=== PATIENT | female | born 1950 | race Caucasian/White ===

== ENCOUNTER → 2017-01-08 | Outpatient (CLI) | payer MEDICARE ==
[~2017-01-08] MED LIST: ASPI81TA3; BLOOD PRESSURE; CHOLESTEROL; HYDR25TA6 OR; LISI10TA4 OR; LOPR50TA OR; PLAV75TA2 OR; PRAV40TA; PROZ20CA; SERT50TA2 OR; ZANT150T OR; lisinopril/HCTZ
--- NOTE | 2017-01-08 11:34 | REP ---
Duplex carotid sonography: History: TIA in 2011. Bilateral carotid stenosis. Comparison sonography December 22, 2015. This showed less than 50% narrowing in the right ICA and 60-79% narrowing in the left ICA. Sonographic findings: Antegrade flow is observed in both vertebral arteries. Right carotid: The right common carotid artery shows mild soft plaquing. There is mild soft plaquing in the bulb and proximal ICA on two-dimensional scanning. Color flow and spectral Doppler interrogation remain unremarkable on the right. Velocity chart right carotid : PSV EDV Right CCA 66.0 cm/s Right ICA 71.0 27.0 Right ECA 67.0 Right ICA/CCA ratio normal 1.0. Impression: 16-49% category narrowing in the right ICA by Doppler velocity criteria. Doppler velocities have not increased on the right since the prior study. Left carotid: The left common carotid artery is unremarkable on two-dimensional scanning. There is moderate mixed plaquing in the bulb, proximal ICA and proximal ECA. Color flow and spectral Doppler interrogation show some stenotic flow velocity of the ECA, but normal velocities in the ICA. Velocity chart left carotid: PSV EDV Left CCA 57.0 cm/s Left ICA 85.0 31.0 Left ECA 154.0 Left ICA/CCA ratio normal 1.4. Impression: 50-79% category narrowing in the left ICA by Doppler velocity criteria. Doppler velocities are less than those recorded on the prior study in December of 2015. Signed by Fernando Ernst MD 01/08/2017 01:19 P
== END ==
LOC: M RAD 09:37
PROVIDERS: ATTEND Surgery Vascular Surgery
DX: I65.23 Occlusion and stenosis of bilateral carotid arteries (principal)

== ENCOUNTER → 2017-04-09 | Outpatient (CLI) | payer MEDICARE | LOC: M WHC 14:25 | DX: Z12.31 Encounter for screening mammogram for malignant neoplasm of breast (principal); R92.8 Other abnormal and inconclusive findings on diagnostic imaging of breast | CPT/HCPCS: 77067 ==

== ENCOUNTER → 2017-04-12 | Outpatient (CLI) | payer MEDICARE | LOC: M RAD 15:01 | DX: R92.2 Inconclusive mammogram (principal); R92.0 Mammographic microcalcification found on diagnostic imaging of breast | CPT/HCPCS: 77065 ==

== ENCOUNTER → 2017-06-25 | Outpatient (CLI) | payer MEDICARE | LOC: M WHC 15:20 | DX: Z51.81 Encounter for therapeutic drug level monitoring (principal); Z79.899 Other long term (current) drug therapy; C50.919 Malignant neoplasm of unspecified site of unspecified female breast | CPT/HCPCS: 77080 ==

== ENCOUNTER 2017-07-12 08:53 | Outpatient (RCR) | payer MEDICARE | END 2017-07-30 | LOC: M ONCR 08:53 | DX: C50.812 Malignant neoplasm of overlapping sites of left female breast (principal) | CPT/HCPCS: 77300 ==

== ENCOUNTER 2017-07-31 10:14 | Outpatient (RCR) | payer MEDICARE | END 2017-08-30 | LOC: M ONCR 10:14 | DX: C50.812 Malignant neoplasm of overlapping sites of left female breast (principal) | CPT/HCPCS: 77336 ==

== ENCOUNTER → 2017-09-21 | Outpatient (CLI) | payer MEDICARE | LOC: M ONCR 10:08 | DX: C50.812 Malignant neoplasm of overlapping sites of left female breast (principal) ==

== ENCOUNTER → 2018-01-08 | Outpatient (CLI) | payer MEDICARE | LOC: M RAD 14:00 | DX: I65.23 Occlusion and stenosis of bilateral carotid arteries (principal) | CPT/HCPCS: 93880 ==

== ENCOUNTER 2018-01-31 07:36 | Day surgery (SDC) | payer MEDICARE ==
[2018-01-31] MEDS: NS 1,000 ML IV (06:30)
[~2018-01-31 07:36] MED LIST changes: -ASPI81TA3; -BLOOD PRESSURE; -CHOLESTEROL; -HYDR25TA6 OR; +LIDOCAINE 2% MDV 20 ML VIAL As Ordered; -LISI10TA4 OR; -LOPR50TA OR; -PLAV75TA2 OR; -PRAV40TA; +PROPOFOL 200 MG/20 ML VIAL As Ordered; -PROZ20CA; -SERT50TA2 OR; -ZANT150T OR; -lisinopril/HCTZ
== END 2018-01-31 09:45 | disposition home or self-care (01) ==
LOC: M OPP 07:36
DX: Z12.11 Encounter for screening for malignant neoplasm of colon (principal); K57.30 Diverticulosis of large intestine without perforation or abscess without bleeding; Z80.0 Family history of malignant neoplasm of digestive organs; I10 Essential (primary) hypertension; E78.00 Pure hypercholesterolemia, unspecified; K21.9 Gastro-esophageal reflux disease without esophagitis; F32.9 Major depressive disorder, single episode, unspecified; M12.9 Arthropathy, unspecified; G47.30 Sleep apnea, unspecified; I73.9 Peripheral vascular disease, unspecified; I25.119 Atherosclerotic heart disease of native coronary artery with unspecified angina pectoris; I25.2 Old myocardial infarction; Z79.82 Long term (current) use of aspirin; Z79.899 Other long term (current) drug therapy; Z91.048 Other nonmedicinal substance allergy status; Z87.891 Personal history of nicotine dependence; Z78.0 Asymptomatic menopausal state; Z85.820 Personal history of malignant melanoma of skin; Z98.61 Coronary angioplasty status; Z98.890 Other specified postprocedural states
CPT/HCPCS: G0105

== ENCOUNTER 2018-02-13 09:55 | Emergency (ER) | payer MEDICARE ==
[2018-02-13] MEDS: ONDANSETRON 4MG/2ML VIAL (J2405) IV (10:51)
[2018-02-13] MEDS: NS 1,000 ML IV (10:51)
[2018-02-13] MEDS: MORPHINE 4 MG/ML 1ML VIAL/SYRINGE (J2270) IV (10:52)
[2018-02-13 10:57] LABS: BASO % 0.6 % (0.0-1.0); EOS # 0.1 10^3/uL (0.0-0.50); EOS % 1.4 % (0.0-3.0); HEMATOCRIT 41.9 % (36.0-47.0); HEMOGLOBIN 14.1 g/dl (12.0-15.5); IMMATURE GRANULOCYTE % 0.4 % (0-3.0); LYMPH # 1.4 10^3/uL (1.5-4.5); MEAN CORPUSCULAR HEMOGLOBIN 29.2 pg (27.0-33.0); MEAN CORPUSCULAR HGB CONC 33.7 g/dl (32.0-36.5); MEAN CORPUSCULAR VOLUME 86.7 fl (80.0-96.0); MONO # 0.7 10^3/uL (0.0-0.8); MONO % 10.3 % (0.0-5.0); NEUTROPHILS # 4.9 10^3/uL (1.8-7.7); NEUTROPHILS % 68.3 % (36.0-66.0); PLATELET COUNT, AUTOMATED 227 10^3/uL (150-450); RED BLOOD COUNT 4.83 10^6/uL (4.00-5.40); RED CELL DISTRIBUTION WIDTH 12.4 % (11.5-14.5); WHITE BLOOD COUNT 7.2 10^3/uL (4.0-10.0)
[2018-02-13 11:18] LABS: LACTIC ACID SEPSIS PROTOCOL 0.8 MMOL/L (0.4-2.0)
[2018-02-13 11:21] LABS: ALBUMIN 3.6 GM/DL (3.2-5.2); ALBUMIN/GLOBULIN RATIO 1.09 (1.00-1.93); ALKALINE PHOSPHATASE 118 U/L (45-117); ALT/SGPT 25 U/L (12-78); AMYLASE 83 U/L (25-115); ANION GAP 6 MEQ/L (8-16); AST/SGOT 21 U/L (7-37); BILIRUBIN,DIRECT 0.2 MG/DL (0.0-0.2); BILIRUBIN,TOTAL 1.2 MG/DL (0.2-1.0); BLOOD UREA NITROGEN 15 MG/DL (7-18); CALCIUM LEVEL 8.7 MG/DL (8.8-10.2); CARBON DIOXIDE LEVEL 28 MEQ/L (21-32); CHLORIDE LEVEL 107 MEQ/L (98-107); CPK CREATINE PHOSPHOKINASE 101 U/L (26-192); CREATININE FOR GFR 0.84 MG/DL (0.55-1.30); GLOMERULAR FILTRATION RATE > 60.0 (>45); GLUCOSE, FASTING 105 MG/DL (70-100); LIPASE 168 U/L (73-393); MB/CK RELATIVE INDEX 1.29 (< OR =4); POTASSIUM SERUM 3.9 MEQ/L (3.5-5.1); SODIUM LEVEL 141 MEQ/L (136-145); TOTAL PROTEIN 6.9 GM/DL (6.4-8.2); TROPONIN I < 0.02 NG/ML (< 0.10)
[2018-02-13] MEDS ORDERED: ISOVUE-370 76% 100ML VIAL (Q9967) As Ordered (11:37)
== END 2018-02-13 20:21 | disposition home or self-care (01) ==
LOC: M ED 09:55
DX: K80.60 Calculus of gallbladder and bile duct with cholecystitis, unspecified, without obstruction (principal); I10 Essential (primary) hypertension; E78.00 Pure hypercholesterolemia, unspecified; G47.30 Sleep apnea, unspecified; K21.9 Gastro-esophageal reflux disease without esophagitis; F42.9 Obsessive-compulsive disorder, unspecified; F33.9 Major depressive disorder, recurrent, unspecified; Z87.19 Personal history of other diseases of the digestive system; Z85.3 Personal history of malignant neoplasm of breast; Z79.82 Long term (current) use of aspirin; Z79.899 Other long term (current) drug therapy; Z79.2 Long term (current) use of antibiotics; I25.2 Old myocardial infarction; Z95.5 Presence of coronary angioplasty implant and graft; Z98.890 Other specified postprocedural states; Z90.49 Acquired absence of other specified parts of digestive tract; Z80.0 Family history of malignant neoplasm of digestive organs; Z87.891 Personal history of nicotine dependence
CPT/HCPCS: J2270

== ENCOUNTER 2018-02-17 23:33 | Emergency (ER) | payer MEDICARE ==
[2018-02-18] MEDS: MORPHINE 4 MG/ML 1ML VIAL/SYRINGE (J2270) IV (00:30)
[2018-02-18] MEDS: NS 500 ML IV (00:30)
[2018-02-18] MEDS: ONDANSETRON 4MG/2ML VIAL (J2405) IV (00:35)
[2018-02-18 00:38] LABS: BASO # 0.1 10^3/uL (0.0-0.2); BASO % 1.1 % (0.0-1.0); EOS # 0.2 10^3/uL (0.0-0.50); EOS % 3.4 % (0.0-3.0); HEMATOCRIT 40.4 % (36.0-47.0); HEMOGLOBIN 13.7 g/dl (12.0-15.5); IMMATURE GRANULOCYTE % 0.4 % (0-3.0); LYMPH # 1.3 10^3/uL (1.5-4.5); LYMPH % 23.3 % (24.0-44.0); MEAN CORPUSCULAR HEMOGLOBIN 29.1 pg (27.0-33.0); MEAN CORPUSCULAR HGB CONC 33.9 g/dl (32.0-36.5); MONO # 0.9 10^3/uL (0.0-0.8); MONO % 15.3 % (0.0-5.0); NEUTROPHILS # 3.1 10^3/uL (1.8-7.7); NEUTROPHILS % 56.5 % (36.0-66.0); PLATELET COUNT, AUTOMATED 249 10^3/uL (150-450); RED CELL DISTRIBUTION WIDTH 12.4 % (11.5-14.5); WHITE BLOOD COUNT 5.5 10^3/uL (4.0-10.0)
[2018-02-18 00:49] LABS: ALBUMIN 3.5 GM/DL (3.2-5.2); ALBUMIN/GLOBULIN RATIO 1.03 (1.00-1.93); ALKALINE PHOSPHATASE 127 U/L (45-117); ALT/SGPT 26 U/L (12-78); ANION GAP 6 MEQ/L (8-16); AST/SGOT 25 U/L (7-37); BILIRUBIN,TOTAL 0.7 MG/DL (0.2-1.0); BLOOD UREA NITROGEN 12 MG/DL (7-18); C REACTIVE PROTEIN QUANTITATIV < 0.30 MG/DL (0.00-0.30); CALCIUM LEVEL 8.9 MG/DL (8.8-10.2); CARBON DIOXIDE LEVEL 27 MEQ/L (21-32); CHLORIDE LEVEL 109 MEQ/L (98-107); CREATININE FOR GFR 0.83 MG/DL (0.55-1.30); GAMMA GLUTAMYLTRANSPEPTIDASE 19 U/L (5-55); GLOMERULAR FILTRATION RATE > 60.0 (>45); GLUCOSE, FASTING 139 MG/DL (70-100); POTASSIUM SERUM 3.7 MEQ/L (3.5-5.1); SODIUM LEVEL 142 MEQ/L (136-145); TOTAL PROTEIN 6.9 GM/DL (6.4-8.2)
[2018-02-18 00:51] LABS: LACTIC ACID SEPSIS PROTOCOL 1.6 MMOL/L (0.4-2.0)
[2018-02-18 01:04] LABS: APPEARANCE, URINE CLEAR (CLEAR); BACTERIA, URINE AUTO NEGATIVE (NEGATIVE); BILIRUBIN, URINE AUTO NEGATIVE (NEGATIVE); BLOOD, URINE BLOOD 1+ (NEGATIVE); COLOR, URINE STRAW (YELLOW); GLUCOSE, URINE (UA) AUTO NEGATIVE (NEGATIVE); KETONE, URINE AUTO NEGATIVE (NEGATIVE); LEUKOCYTE ESTERASE, URINE AUTO NEGATIVE (NEGATIVE); NITRITE, URINE AUTO NEGATIVE (NEGATIVE); PROTEIN, URINE AUTO NEGATIVE (NEGATIVE); RBC, URINE AUTO 3 /HPF (0-3); SPECIFIC GRAVITY URINE AUTO 1.013 (1.002-1.035); SQUAMOUS EPITHELIAL CELL UR AU 0 /HPF (0-6); UROBILINOGEN, URINE AUTO 0.2 mg/dL (0.0-2.0); WBC, URINE AUTO 0 /HPF (0-3)
[2018-02-18] MEDS: HYDROMORPHONE HCL 0.5 MG/ 0.5 ML SYRINGE (J1170 PER 1) IV (02:44)
== END 2018-02-18 03:12 | disposition home or self-care (01) ==
LOC: M ED 23:33
DX: R10.10 Upper abdominal pain, unspecified (principal); R11.0 Nausea; I10 Essential (primary) hypertension; K21.9 Gastro-esophageal reflux disease without esophagitis; F33.9 Major depressive disorder, recurrent, unspecified; F42.9 Obsessive-compulsive disorder, unspecified; Z85.3 Personal history of malignant neoplasm of breast; Z79.899 Other long term (current) drug therapy; Z79.82 Long term (current) use of aspirin
CPT/HCPCS: J2270

== ENCOUNTER 2018-03-05 10:45 | Day surgery (SDC) | payer MEDICARE ==
[~2018-03-05 10:45] MED LIST changes: +KETOROLAC 60 MG/2 ML VIAL (J1885) As Ordered; +LIDOCAINE 2% INJ 100 MG/5 ML SDV (FOR ANES.) As Ordered; -LIDOCAINE 2% MDV 20 ML VIAL As Ordered; +MIDAZOLAM INJ 2 MG/2 ML VIAL (J2250) As Ordered; +ONDANSETRON 4MG/2ML VIAL (J2405) As Ordered; +ROCURONIUM BROMIDE 50 MG/5 ML VIAL As Ordered; +dexameTHASONE 4 MG/ML 1ML VIAL (J1100) As Ordered; +fentaNYL 250 MCG/5 ML INJECTION (J3010) As Ordered
[2018-03-05] MEDS ORDERED: ceFAZolin 1GM INJ (J0690 PER 500MG) As Ordered (10:52)
[2018-03-05] MEDS ORDERED: SEVOFLURANE INHAL SOLN 250 ML BTL As Ordered (11:01)
[2018-03-05] MEDS ORDERED: BUPIVACAINE/EPIN 0.5% 30 ML VIAL As Ordered (11:02)
[2018-03-05] MEDS: LR 1,000 ML IV (11:16)
[2018-03-05] MEDS: ceFAZolin SOD 1 GM in D5W MINI-BAG PLUS 50 ML IV (11:17)
[2018-03-05] MEDS ORDERED: ePHEDrine SULFATE 25 MG/5 ML(5MG/ML) SYRINGE As Ordered (12:13)
[2018-03-05] MEDS ORDERED: HYDROmorphone HCL 2 MG/ML 1ML VIAL (J1170) As Ordered (12:27)
[2018-03-05] MEDS ORDERED: GLYCOPYRROLATE INJ 0.2 MG/ML 2 ML VIAL As Ordered (12:27)
[2018-03-05] MEDS ORDERED: NEOSTIGMINE 10 MG/10 ML VIAL (J2710) As Ordered (12:27)
[2018-03-05] MEDS: CONRAY-60 60% 50ML VIAL (Q9961) As Ordered (12:35)
[2018-03-05] MEDS: GLUCAGON FOR INJ 1 MG VIAL (J1610) As Ordered (12:35)
[2018-03-05] MEDS: BUPIVACAINE/EPIN 0.25% 30 ML VIAL As Ordered (12:36)
[2018-03-05] MEDS ORDERED: NORCO, ANEXSIA 5/325MG TABLET (HYDROcodone/ACETAMINOPHEN) PO ×2 (13:15→13:30)
[2018-03-05] MEDS ORDERED: ONDANSETRON 4MG/2ML VIAL (J2405) IV ×2 (13:15→13:30)
[2018-03-05] MEDS ORDERED: fentaNYL 100 MCG/2 ML INJECTION (J3010) IV (13:15)
[2018-03-05] MEDS ORDERED: LR 1,000 ML IV ×2 (13:15)
[2018-03-05] MEDS ORDERED: MORPHINE 4 MG/ML 1ML VIAL/SYRINGE (J2270) IV (13:30)
== END 2018-03-05 15:33 | disposition home or self-care (01) ==
LOC: M SDC 10:45
DX: K80.18 Calculus of gallbladder with other cholecystitis without obstruction (principal); I10 Essential (primary) hypertension; E78.5 Hyperlipidemia, unspecified; K21.9 Gastro-esophageal reflux disease without esophagitis; Z92.3 Personal history of irradiation; G47.30 Sleep apnea, unspecified; Z79.82 Long term (current) use of aspirin; Z79.899 Other long term (current) drug therapy
CPT/HCPCS: 47562

== ENCOUNTER → 2018-06-03 | Outpatient (CLI) | payer MEDICARE ==
[~2018-06-03] MED LIST changes: +AMOX500C; +ASPI1TAB PO; +ASPI81TA3; +ATOR40TA75 PO; +BLOOD PRESSURE; +CARV6.25 PO; +CHOLESTEROL; +CIPR500T3 PO; +CITA-230 PO; +CLAR500T; +HYDR25TA6 OR; -KETOROLAC 60 MG/2 ML VIAL (J1885) As Ordered; +LETR2.5T2 PO; -LIDOCAINE 2% INJ 100 MG/5 ML SDV (FOR ANES.) As Ordered; +LISI10TA4 OR; +LISI2.5T5 PO; +LOPR50TA OR; -MIDAZOLAM INJ 2 MG/2 ML VIAL (J2250) As Ordered; -ONDANSETRON 4MG/2ML VIAL (J2405) As Ordered; +PLAV75TA2 OR; +PRAV40TA; +PRIL20TA2 PO; -PROPOFOL 200 MG/20 ML VIAL As Ordered; +PROZ20CA; +RANI150T PO; -ROCURONIUM BROMIDE 50 MG/5 ML VIAL As Ordered; +SERT50TA2 OR; +ZANT150T OR; -dexameTHASONE 4 MG/ML 1ML VIAL (J1100) As Ordered; -fentaNYL 250 MCG/5 ML INJECTION (J3010) As Ordered; +lisinopril/HCTZ
--- NOTE | 2018-06-03 17:02 | REP ---
Thoracic spine series: Three views: History: Muscle spasm. Comparison is made with CT images obtained as part of radiation therapy simulation dated July 12, 2017. The patient has history breast carcinoma. Findings: Thoracic vertebral body heights are preserved. Alignment is normal. There are degenerative disc changes at C4-5, C5-6 and C6-7 in the cervical spine on swimmer's lateral view. Pedicles and posterior elements are intact and the thoracic spine. There are clips in right upper quadrant of the abdomen. There are calcified mesenteric lymph node residuals in the mediastinum unchanged from the CT. There is also evidence of coronary artery stent material. Impression: No acute bony abnormality. Electronically Signed by Fernando Ernst MD 06/03/2018 05:03 P
--- NOTE | 2018-06-03 17:20 | REP ---
Lumbar spine series: Five views: History: Muscle spasm. Findings: There is straightening of the normal lumbar lordosis. Vascular calcification is seen in a normal caliber aorta. There are degenerative disc changes at the L4-5, L3-4 and in the T11-12 disc. There is partial wedge compression fracture deformity at the T12 vertebral body with approximate 15% loss of anterior vertebral body height. This is new from the imaging taken as prior CT scan dated February 13, 2018. No other compression fracture deformity is seen. Pedicles and posterior elements are intact in the lumbar spine. Psoas margins are symmetric. Sacrum and SI joints are intact. Impression: Mild wedge compression fracture deformity at the T12 vertebral body with 15% loss of anterior vertebral body heights. This is new when compared with February 13, [address] images[address] Degenerative disc changes are noted at L3-4 L4-5. Electronically Signed by Fernando Ernst MD 06/03/2018 05:25 P
== END ==
LOC: M RAD 15:50
PROVIDERS: ATTEND Family Medicine
DX: M62.830 Muscle spasm of back (principal); M54.5 Low back pain; M50.221 Other cervical disc displacement at C4-C5 level; M50.222 Other cervical disc displacement at C5-C6 level; M50.223 Other cervical disc displacement at C6-C7 level; M51.36 Other intervertebral disc degeneration, lumbar region

== ENCOUNTER → 2019-01-14 | Outpatient (CLI) | payer MEDICARE ==
[~2019-01-14] MED LIST changes: +ACET-683 PO; -ASPI1TAB PO; +ASPI81TA26 PO; -CITA-230 PO; +CITA20TA7 PO; +LISI-1046 PO; -LISI2.5T5 PO; +NIZA150C4 PO
--- NOTE | 2019-01-14 17:23 | REP ---
REASON FOR EXAM: Followup carotid arterial disease. COMPARISON: 01/08/2018 which showed a 50-69% stenosis of the left internal carotid artery and less than 50% stenosis of the right internal carotid artery. That was based on the NASCET consensus criteria. Today's examination again shows increased echoes throughout the carotid arteries and in a fashion essentially unchanged from the prior exam. No abnormal acoustic shadowing is identified that would be considered consistent with calcific deposition. RIGHT LEFT CCA systolic 83.8 cm/s 65.9 cm/s CCA diastolic 18.7 cm/s 22.8 cm/s ICA systolic 50.7 cm/s 87.5 cm/s ICA diastolic 18.3 cm/s 36.7 cm/s ICA/CCA ratio 0.61 1.3 Analysis of the spectral wave forms shows bilateral internal carotid arterial spectral broadening. There is antegrade flow seen in both vertebral arteries. IMPRESSION:According the NASCET consensus criteria, today's examination shows less than 50% stenosis of the internal carotid artery bilaterally. Electronically Signed by Hilario Silva DO 01/14/2019 06:03 P
== END ==
LOC: M RAD 15:04
PROVIDERS: ATTEND Surgery Vascular Surgery
DX: I65.23 Occlusion and stenosis of bilateral carotid arteries (principal)

== ENCOUNTER 2019-01-23 14:02 | Outpatient (RCR) | payer MEDICARE | END 2019-01-30 | LOC: M PT 14:02 | PROVIDERS: ATTEND Registered Nurse | DX: C50.312 Malignant neoplasm of lower-inner quadrant of left female breast (principal); Z17.0 Estrogen receptor positive status [ER+]; I89.0 Lymphedema, not elsewhere classified ==

== ENCOUNTER 2019-02-03 14:44 | Outpatient (RCR) | payer MEDICARE | END 2019-03-01 | LOC: M PT 14:44 | PROVIDERS: ATTEND Registered Nurse | DX: C50.312 Malignant neoplasm of lower-inner quadrant of left female breast (principal); I89.0 Lymphedema, not elsewhere classified; Z17.0 Estrogen receptor positive status [ER+] ==

== ENCOUNTER → 2019-09-02 | Outpatient (CLI) | payer MEDICARE ==
[~2019-09-02] MED LIST changes: -CLAR500T; +CLAR500T97; +FAMO20TA5 PO; -LISI-1046 PO; +LISI2.5T2 PO
[2019-09-02 17:09] LABS: BASO # 0.1 10^3/uL (0.0-0.2); EOS # 0.1 10^3/uL (0.0-0.5); EOS % 2.5 % (0.0-3.0); HEMATOCRIT 39.8 % (36.0-47.0); HEMOGLOBIN 13.3 g/dl (12.0-15.5); LYMPH # 1.4 10^3/uL (1.5-5.0); LYMPH % 29.6 % (24.0-44.0); MEAN CORPUSCULAR HEMOGLOBIN 29.8 pg (27.0-33.0); MEAN CORPUSCULAR HGB CONC 33.4 g/dl (32.0-36.5); MEAN CORPUSCULAR VOLUME 89.2 fl (80.0-96.0); MONO # 0.6 10^3/uL (0.0-0.8); MONO % 11.7 % (0.0-5.0); NEUTROPHILS # 2.6 10^3/uL (1.5-8.5); PLATELET COUNT, AUTOMATED 240 10^3/uL (150-450); RED BLOOD COUNT 4.46 10^6/uL (4.00-5.40); WHITE BLOOD COUNT 4.8 10^3/uL (4.0-10.0)
[2019-09-02 17:40] LABS: ALBUMIN 3.5 GM/DL (3.2-5.2); ALT/SGPT 31 U/L (12-78); BILIRUBIN,TOTAL 1.4 MG/DL (0.2-1.0); BLOOD UREA NITROGEN 15 MG/DL (7-18); CALCIUM LEVEL 8.8 MG/DL (8.8-10.2); CARBON DIOXIDE LEVEL 27 MEQ/L (21-32); CHLORIDE LEVEL 110 MEQ/L (98-107); CREATININE FOR GFR 0.74 MG/DL (0.55-1.30); GLOMERULAR FILTRATION RATE > 60.0 (>45); GLUCOSE, FASTING 112 MG/DL (70-100); POTASSIUM SERUM 3.7 MEQ/L (3.5-5.1); SODIUM LEVEL 141 MEQ/L (136-145); TOTAL PROTEIN 6.5 GM/DL (6.4-8.2)
== END ==
LOC: M WUC 13:47
PROVIDERS: ATTEND Specialist
DX: Z85.3 Personal history of malignant neoplasm of breast (principal)

== ENCOUNTER → 2019-09-11 | Outpatient (CLI) | payer MEDICARE ==
--- NOTE | 2019-09-18 11:16 | DEXA ---
AP SPINE L1 - L4 1.249 0.4 2.1 LT FEMUR TOTAL 0.922 -0.7 0.7 LT NECK 0.954 -0.6 1.0 RT FEMUR TOTAL 0.886 -1.0 0.5 RT NECK 0.901 -1.0 0.7 TOTAL BODY TOTAL OTHER COMMENTS: Normal bone densitometry of the spine and hips. Normal bone densitometry of the hips. There is low bone density of the right hip. The density of the spine is increased 1.1% since 06/25/2017. The density of the left hip has decreased 2.7% since 06/25/2017. The density of the left hip has decreased 2.7% since 06/25/2017. The density of the right hip has decreased 2.5% since 06/25/2017. The increased density of the spine does not represent a significant change. The decreased density of the left hip does represent significant change. The decreased density of the right hip does represent a significant change. FOLLOW-UP: Recommendation for the next bone density exam: 2 years. ANI
== END ==
LOC: M WHC 09:51
PROVIDERS: ATTEND Internal Medicine Hematology & Oncology
DX: M85.851 Other specified disorders of bone density and structure, right thigh (principal); C50.812 Malignant neoplasm of overlapping sites of left female breast

== ENCOUNTER → 2020-03-08 | Outpatient (CLI) | payer SELFPAY | LOC: M LABSMTC 15:28 | PROVIDERS: ATTEND Pediatrics | DX: Z20.828 Contact with and (suspected) exposure to other viral communicable diseases (principal) ==

== ENCOUNTER → 2020-04-28 | Outpatient (CLI) | payer MEDICARE ==
--- NOTE | 2020-04-28 11:16 | REP ---
INDICATION: OCCLUSION AND STENOSIS OF SOLITARIO CAROTID ARTERIES COMPARISON: Comparison study January 14, 2019.. TECHNIQUE: Real-time ultrasound evaluation and duplex Doppler interrogation of the extracranial carotid vasculature is performed. FINDINGS: Antegrade flow is observed in both vertebral arteries. Right carotid: The right common carotid artery shows diffuse intimal thickening but is otherwise unremarkable. Patient is status post prior right carotid endarterectomy. No significant plaquing is seen.. Color flow and spectral Doppler interrogation are unremarkable on the right. Velocity chart right carotid: Right CCA PSV: 84 cm/S Right ICA PSV: 57 cm/S Right ICA EDV: 16 cm/S Right ECA PSV: 84 cm/S Right ICA/CCA ratio: 0.6 Left carotid: The left common carotid artery shows diffuse intimal thickening but is otherwise unremarkable. There is mild to moderate mixed plaquing in the left carotid bulb and proximal ICA on two-dimensional scanning. Color flow and spectral Doppler interrogation are unremarkable on the left. Velocity chart left carotid: Left CCA PSV: 80 cm/S Left ICA PSV: 150 cm/S Left ICA EDV: 36 cm/S Left ECA PSV: 201 cm/S Left ICA/CCA ratio: 1.8 IMPRESSION: Less than 50% category narrowing in the right internal carotid artery by Doppler velocity criteria. Status post right carotid endarterectomy. No significant plaquing. 50-69% category narrowing in the left ICA by Doppler velocity criteria. Doppler velocities have increased somewhat in the left ICA in the interval since the prior study. <Electronically signed by Yasir Ernst > 04/28/20 [id number]
== END ==
LOC: M RAD 09:39
PROVIDERS: ATTEND Surgery Vascular Surgery
DX: I65.23 Occlusion and stenosis of bilateral carotid arteries (principal)

== ENCOUNTER → 2020-10-27 | Outpatient (CLI) | payer MEDICARE ==
[~2020-10-27] MED LIST changes: +CALC1TAB42 PO
--- NOTE | 2020-10-27 13:09 | REP ---
INDICATION: L SHOULDER PAIN. COMPARISON: None. TECHNIQUE: Three views of the left shoulder are presented. FINDINGS: Three views of the left shoulder demonstrate normal alignment of the glenohumeral and acromioclavicular joint. There is mild osteoarthritic hypertrophy at the AC joint. No erosive changes seen. Periarticular soft tissues are unremarkable. There are granulomatous lymph node calcifications in the mediastinum. Post surgical clips are noted in the left perihilar region along with a pulmonary parenchymal granuloma. IMPRESSION: Mild AC joint osteoarthritis. Old granulomatous changes and postoperative changes in the left chest. Otherwise negative. <Electronically signed by Yasir Ernst > 10/27/20 [id number]
== END ==
LOC: M RAD 12:42
PROVIDERS: ATTEND Internal Medicine Medical Oncology
DX: M25.512 Pain in left shoulder (principal)

== ENCOUNTER 2020-11-24 07:42 | Outpatient (RCR) | payer MEDICARE ==
[~2020-11-24 07:42] MED LIST changes: -LISI2.5T2 PO; +LISI2.5T9 PO
== END 2020-11-30 ==
LOC: M PT 07:42
PROVIDERS: ATTEND Physician Assistant Surgical
DX: M19.012 Primary osteoarthritis, left shoulder (principal); M75.42 Impingement syndrome of left shoulder

== ENCOUNTER 2020-12-20 12:15 | Outpatient (RCR) | payer MEDICARE | END 2020-12-30 | LOC: M PT 12:15 | PROVIDERS: ATTEND Physician Assistant Surgical | DX: M19.012 Primary osteoarthritis, left shoulder (principal); M75.42 Impingement syndrome of left shoulder ==

== ENCOUNTER → 2021-01-03 | Outpatient (REF) | payer MEDICARE ==
[2021-01-04 21:20] LABS: % LABILE ALKALINE PHOSPHATASE 69.2 %
== END ==
LOC: M LAB REF 16:43
PROVIDERS: ATTEND Family Medicine
DX: R94.5 Abnormal results of liver function studies (principal)

== ENCOUNTER → 2021-01-12 | Outpatient (CLI) | payer MEDICARE ==
--- NOTE | 2021-01-12 13:09 | REP ---
INDICATION: PRIMARY OSTEOARTHRITIS, LEFT SHOULDER. COMPARISON: None. TECHNIQUE: Coronal oblique T1 and fat suppressed T2. Sagittal oblique fat suppressed T2. Axial [id number] and T2 FLASH. FINDINGS: There is moderate to severe hypertrophic degenerative change seen involving the acromioclavicular joint. The acromion process is a mild type 2 with a spur arising from the inferior surface at the AC joint. There is advanced linear and patchy T2 hyper signal seen throughout the supraspinatus tendon some of which appears to be full-thickness. There is no supraspinatus musculotendinous retraction. There is evidence of supraspinatus muscle atrophy. There is no glenohumeral joint effusion, however, there is a small amount of fluid the subcoracoid recess. There is some evidence of coracohumeral and coracoacromial ligamentous thickening. There is mild patchy T2 hyper signal seen in the subscapularis and infraspinatus tendons. The biceps tendon resides within the bicipital groove. IMPRESSION: 1. There is advanced supraspinatus tendinitis/tendinosis. I cannot rule out the possibility of a partial full-thickness tear. 2. AC joint DJD and ligamentous thickening as described above consistent with the clinical diagnosis of impingement syndrome. 3. There is mild subscapularis and infraspinatus tendinitis/tendinosis. 4. Other findings as described above. <Electronically signed by Hilario Silva > 01/12/21 [id number]
== END ==
LOC: M PLAIMG 10:55
PROVIDERS: ATTEND Physician Assistant Surgical
DX: M19.012 Primary osteoarthritis, left shoulder (principal)

== ENCOUNTER → 2021-01-14 | Outpatient (CLI) | payer MEDICARE ==
--- NOTE | 2021-01-14 09:26 | REP ---
INDICATION: ABN LFT'S. COMPARISON: 02/13/2018 TECHNIQUE: Real-time sonographic evaluation of the right upper quadrant with Doppler FINDINGS: Multiple ultrasonographic images of the liver show the hepatic parenchymal echo texture to appear unremarkable. Two simple cysts are noted status quo. There are no focal masses. There is no intrahepatic ductal dilatation. The common bile duct measures approximately 3 mm in its greatest transverse dimension. Images of the pancreatic region show no gross abnormality. The imaged portion of the right kidney is unremarkable. IMPRESSION: Two simple cysts in the liver which are unchanged from the prior exam. There is no evidence of an acute abnormality. Accredited by the [employer] in General Ultrasound. <Electronically signed by Hilario Silva > 01/14/21 0922
== END ==
LOC: M RAD 08:45
PROVIDERS: ATTEND Family Medicine
DX: K76.89 Other specified diseases of liver (principal); R79.89 Other specified abnormal findings of blood chemistry

== ENCOUNTER → 2021-05-02 | Outpatient (CLI) | payer MEDICARE ==
[~2021-05-02] MED LIST changes: +NIZA150C10 PO; -NIZA150C4 PO
== END ==
LOC: M RAD 12:10
PROVIDERS: ATTEND Surgery Vascular Surgery
DX: I65.23 Occlusion and stenosis of bilateral carotid arteries (principal)

== ENCOUNTER → 2021-05-25 | Outpatient (CLI) | payer MEDICARE | LOC: M WHC 11:01 | PROVIDERS: ATTEND Surgery | DX: C50.312 Malignant neoplasm of lower-inner quadrant of left female breast (principal); Z17.0 Estrogen receptor positive status [ER+]; Z80.0 Family history of malignant neoplasm of digestive organs; Z92.3 Personal history of irradiation | CPT/HCPCS: 77066; G0279 ==

== ENCOUNTER → 2021-12-29 | Outpatient (CLI) | payer MEDICARE | LOC: M RAD 13:14 | PROVIDERS: ATTEND Physician Assistant Medical | DX: M54.50 Low back pain, unspecified (principal); M47.816 Spondylosis without myelopathy or radiculopathy, lumbar region; M25.78 Osteophyte, vertebrae ==

== ENCOUNTER → 2022-06-12 | Outpatient (REF) | payer MEDICARE ==
[2022-06-12 21:49] LABS: APPEARANCE, URINE HAZY (CLEAR); BACTERIA, URINE AUTO 2+ (NEGATIVE); BILIRUBIN, URINE AUTO NEGATIVE (NEGATIVE); BLOOD, URINE BLOOD 2+ (NEGATIVE); COLOR, URINE YELLOW (YELLOW); GLUCOSE, URINE (UA) AUTO NEGATIVE (NEGATIVE); KETONE, URINE AUTO NEGATIVE (NEGATIVE); LEUKOCYTE ESTERASE, URINE AUTO 3+ (NEGATIVE); MUCUS, URINE SMALL (NEGATIVE); NITRITE, URINE AUTO NEGATIVE (NEGATIVE); PROTEIN, URINE AUTO NEGATIVE (NEGATIVE); RBC, URINE AUTO 12 /HPF (0-3); SPECIFIC GRAVITY URINE AUTO 1.011 (1.002-1.035); SQUAMOUS EPITHELIAL CELL UR AU 0 /HPF (0-6); UROBILINOGEN, URINE AUTO 0.2 mg/dL (0.0-2.0); WBC, URINE AUTO 16 /HPF (0-3)
== END ==
LOC: M LAB REF 21:29 → EEVIPCON 21:29
PROVIDERS: ATTEND Physician Assistant Medical
DX: N39.0 Urinary tract infection, site not specified (principal)

== ENCOUNTER → 2022-07-21 | Outpatient (CLI) | payer MEDICARE | LOC: M WHC 10:25 | PROVIDERS: ATTEND Surgery | DX: Z12.31 Encounter for screening mammogram for malignant neoplasm of breast (principal); Z85.3 Personal history of malignant neoplasm of breast ==

== ENCOUNTER 2023-01-11 09:05 | Day surgery (SDC) | payer MEDICARE ==
[~2023-01-11] VITALS: Ht 163.8 cm; Wt 77.2 kg
[~2023-01-11 09:05] MED LIST changes: +ATOR80TA59 PO; +LORA-753 PO; +NS 1,000 ML IV ONE
[2023-01-11] MEDS ORDERED: LIDOCAINE 2% 100MG/5ML SDV (FOR ANES.) As Ordered ONE (10:30)
[2023-01-11] MEDS ORDERED: propofoL 500 MG/50 ML VIAL As Ordered ONE (10:30)
[2023-01-11 10:51] VITALS: TEMP 96.6
[2023-01-11 11:12] VITALS: BP_SYST 119; O2SAT 95
== END 2023-01-11 11:26 | disposition home or self-care (01) ==
LOC: M OPP 09:05
PROVIDERS: ATTEND Surgery
DX: K57.30 Diverticulosis of large intestine without perforation or abscess without bleeding (principal); Z80.0 Family history of malignant neoplasm of digestive organs; G47.30 Sleep apnea, unspecified; Z99.89 Dependence on other enabling machines and devices; Z95.5 Presence of coronary angioplasty implant and graft; Z86.74 Personal history of sudden cardiac arrest; I25.10 Atherosclerotic heart disease of native coronary artery without angina pectoris; Z79.02 Long term (current) use of antithrombotics/antiplatelets; Z79.82 Long term (current) use of aspirin; Z79.899 Other long term (current) drug therapy; Z91.048 Other nonmedicinal substance allergy status

== ENCOUNTER 2023-04-15 12:32 | Inpatient (IN) | payer MEDICARE, MEDICAID ==
[~2023-04-15] VITALS: Ht 162.6 cm; Wt 67.8 kg
[~2023-04-15 12:32] MED LIST changes: -NS 1,000 ML IV ONE
[2023-04-15] MEDS ORDERED: MAALOX 30 ML SUSP *UDC PO ONE (12:45)
[2023-04-15] MEDS ORDERED: PANTOPRAZOLE 40MG VIAL IV ONE (12:45)
[2023-04-15] MEDS ORDERED: ONDANSETRON 4MG 2ML VIAL IV ONE (12:45)
[2023-04-15 13:05] LABS: HEMATOCRIT 36.7 % (36.0-47.0); HEMOGLOBIN 11.7 g/dl (12.0-15.5); MEAN CORPUSCULAR HEMOGLOBIN 25.6 pg (27.0-33.0); MEAN CORPUSCULAR HGB CONC 31.9 g/dl (32.0-36.5); MEAN CORPUSCULAR VOLUME 80.3 fl (80.0-96.0); PLATELET COUNT, AUTOMATED 446 10^3/uL (150-450); RED BLOOD COUNT 4.57 10^6/uL (4.00-5.40); WHITE BLOOD COUNT 8.5 10^3/uL (4.0-10.0)
[2023-04-15 13:37] LABS: CK-MB VALUE MASS < 1.0 NG/ML (<3.6)
[2023-04-15 13:38] LABS: ETHYL ALCOHOL (ETHANOL) < 0.003 % (0.000-0.010); LIPASE 601 U/L (12-53)
[2023-04-15 13:39] LABS: SALICYLATE LEVEL < 3.0 MG/DL (<30)
[2023-04-15 13:40] LABS: ALBUMIN 2.7 G/DL (3.2-5.2); ALKALINE PHOSPHATASE 125 U/L (46-116); ALT/SGPT 14 U/L (7.0-40); AST/SGOT 22 U/L (<34); BILIRUBIN,DIRECT 0.3 MG/DL (<0.4); BILIRUBIN,TOTAL 0.7 MG/DL (0.3-1.2); BLOOD UREA NITROGEN 17 MG/DL (9-23); CALCIUM LEVEL 9.5 MG/DL (8.3-10.6); CARBON DIOXIDE LEVEL 26 MMOL/L (20-31); CHLORIDE LEVEL 103 MMOL/L (98-107); CREATININE FOR GFR 0.48 MG/DL (0.55-1.30); GLOMERULAR FILTRATION RATE > 60.0 (>39); GLUCOSE, FASTING 100 MG/DL (74-106); SODIUM LEVEL 138 MMOL/L (136-145); TOTAL PROTEIN 6.3 G/DL (5.7-8.2)
[2023-04-15 13:42] LABS: THYROID STIMULATING HORMONE 1.343 uIU/ML (0.55-4.78)
[2023-04-15 13:45] LABS: CPK CREATINE PHOSPHOKINASE 30 U/L (34-145); MB/CK RELATIVE INDEX 3.33 (< OR =4)
[2023-04-15] MEDS ORDERED: ISOVUE-370 76% 100ML VIAL As Ordered ONE (14:13)
[2023-04-15 14:41] LABS: CK-MB VALUE MASS < 1.0 NG/ML (<3.6)
[2023-04-15 14:42] LABS: CPK CREATINE PHOSPHOKINASE 16 U/L (34-145); MB/CK RELATIVE INDEX 6.25 (< OR =4)
[2023-04-15 14:55] LABS: RSV AMPLIFICATION NEGATIVE (NEGATIVE)
[2023-04-15] MEDS ORDERED: MORPHINE 2 MG/ML 1ML VIAL IV ONE (15:25)
[2023-04-15] MEDS ORDERED: NS 1,000 ML IV SCH (15:25)
[2023-04-15] MEDS ORDERED: MED REC IN PROGRESS XX SCH (15:40)
[2023-04-15] MEDS ORDERED: ONDANSETRON 4MG 2ML VIAL IV PRN (15:50)
[2023-04-15] MEDS ORDERED: LR 1,000 ML IV SCH (15:50)
[2023-04-15] MEDS ORDERED: HOME MED LIST COMPLETE! XX SCH (16:25)
[2023-04-15] MEDS: SUCRALFATE SUSP 1GM/10ML UD PO SCH ×2 (18:05→21:37)
[2023-04-15] MEDS: KETOROLAC 30 MG/ML 1ML VIAL IV PRN (19:27)
[2023-04-15] MEDS: PANTOPRAZOLE 40MG VIAL IV SCH (21:00)
[2023-04-15] MEDS: LR 1,000 ML IV SCH (21:37)
[2023-04-16] MEDS: KETOROLAC 30 MG/ML 1ML VIAL IV PRN ×2 (02:32→20:15)
[2023-04-16] MEDS: SUCRALFATE SUSP 1GM/10ML UD PO SCH ×3 (05:47→21:39)
[2023-04-16] MEDS: LR 1,000 ML IV SCH ×2 (05:53→18:47)
[2023-04-16 08:18] LABS: BASO % 0.4 % (0.0-1.0); EOS # 0.3 10^3/uL (0.0-0.5); EOS % 3.5 % (0.0-3.0); HEMOGLOBIN 10.7 g/dl (12.0-15.5); LYMPH # 0.9 10^3/uL (1.5-5.0); MEAN CORPUSCULAR HGB CONC 30.6 g/dl (32.0-36.5); MONO # 1.3 10^3/uL (0.0-0.8); MONO % 15.9 % (2.0-8.0); NEUTROPHILS # 5.5 10^3/uL (1.5-8.5); NEUTROPHILS % 68.8 % (36.0-66.0); PLATELET COUNT, AUTOMATED 376 10^3/uL (150-450); RED BLOOD COUNT 4.12 10^6/uL (4.00-5.40)
[2023-04-16 08:46] LABS: LIPASE 419 U/L (12-53)
[2023-04-16 08:48] LABS: BLOOD UREA NITROGEN 15 MG/DL (9-23); CARBON DIOXIDE LEVEL 28 MMOL/L (20-31); CHLORIDE LEVEL 106 MMOL/L (98-107); CREATININE FOR GFR 0.45 MG/DL (0.55-1.30); GLOMERULAR FILTRATION RATE > 60.0 (>39); GLUCOSE, FASTING 69 MG/DL (74-106); POTASSIUM SERUM 4.3 MMOL/L (3.5-5.1); SODIUM LEVEL 140 MMOL/L (136-145); TRIGLYCERIDES LEVEL 105 MG/DL (<150)
[2023-04-16] MEDS: PANTOPRAZOLE 40MG VIAL IV SCH ×2 (10:23→21:39)
[2023-04-16] MEDS: ENOXAPARIN 40MG/0.4ML SYRINGE (J1650 PER 10MG) SC SCH (10:23)
[2023-04-16 15:20] VITALS: BP 136/74; TEMP 98.8; O2SAT 97
[2023-04-16 20:48] VITALS: BP 118/71; TEMP 98.2; O2SAT 97
[2023-04-16] MEDS: DOCUSATE SODIUM 100MG CAPSULE PO SCH (21:00)
[2023-04-17 05:25] LABS: BASO # 0.1 10^3/uL (0.0-0.2); BASO % 0.6 % (0.0-1.0); EOS # 0.3 10^3/uL (0.0-0.5); HEMATOCRIT 33.2 % (36.0-47.0); HEMOGLOBIN 10.6 g/dl (12.0-15.5); LYMPH # 0.8 10^3/uL (1.5-5.0); LYMPH % 9.8 % (24.0-44.0); MEAN CORPUSCULAR HEMOGLOBIN 25.9 pg (27.0-33.0); MEAN CORPUSCULAR HGB CONC 31.9 g/dl (32.0-36.5); MEAN CORPUSCULAR VOLUME 81.2 fl (80.0-96.0); MONO # 1.2 10^3/uL (0.0-0.8); MONO % 14.7 % (2.0-8.0); NEUTROPHILS % 71.7 % (36.0-66.0); PLATELET COUNT, AUTOMATED 366 10^3/uL (150-450); RED BLOOD COUNT 4.09 10^6/uL (4.00-5.40); WHITE BLOOD COUNT 8.3 10^3/uL (4.0-10.0)
[2023-04-17 05:52] LABS: LIPASE 312 U/L (12-53)
[2023-04-17 06:00] VITALS: BP 115/71; TEMP 97.9; O2SAT 94
[2023-04-17 06:08] LABS: BLOOD UREA NITROGEN 7 MG/DL (9-23); CALCIUM LEVEL 8.5 MG/DL (8.3-10.6); CARBON DIOXIDE LEVEL 26 MMOL/L (20-31); CHLORIDE LEVEL 104 MMOL/L (98-107); CREATININE FOR GFR 0.39 MG/DL (0.55-1.30); GLOMERULAR FILTRATION RATE > 60.0 (>39); GLUCOSE, FASTING 78 MG/DL (74-106); POTASSIUM SERUM 3.8 MMOL/L (3.5-5.1); SODIUM LEVEL 137 MMOL/L (136-145)
[2023-04-17] MEDS: SUCRALFATE SUSP 1GM/10ML UD PO SCH ×3 (06:09→21:24)
[2023-04-17] MEDS: LR 1,000 ML IV SCH (08:55)
[2023-04-17] MEDS: DOCUSATE SODIUM 100MG CAPSULE PO SCH ×2 (09:52→19:33)
[2023-04-17] MEDS: ENOXAPARIN 40MG/0.4ML SYRINGE (J1650 PER 10MG) SC SCH (09:53)
[2023-04-17] MEDS: PANTOPRAZOLE 40MG VIAL IV SCH ×2 (09:53→19:33)
[2023-04-17 19:36] VITALS: BP 124/73; TEMP 98.6; O2SAT 97
[2023-04-18] MEDS: SUCRALFATE SUSP 1GM/10ML UD PO SCH (05:00)
[2023-04-18 05:01] VITALS: BP 108/40; TEMP 97.7; O2SAT 94
[2023-04-18 06:16] LABS: BASO % 0.5 % (0.0-1.0); EOS # 0.2 10^3/uL (0.0-0.5); EOS % 2.4 % (0.0-3.0); LYMPH # 0.8 10^3/uL (1.5-5.0); MEAN CORPUSCULAR HEMOGLOBIN 26.2 pg (27.0-33.0); MEAN CORPUSCULAR HGB CONC 32.4 g/dl (32.0-36.5); MONO # 1.2 10^3/uL (0.0-0.8); MONO % 15.5 % (2.0-8.0); NEUTROPHILS # 5.3 10^3/uL (1.5-8.5); NEUTROPHILS % 70.3 % (36.0-66.0); PLATELET COUNT, AUTOMATED 390 10^3/uL (150-450); WHITE BLOOD COUNT 7.5 10^3/uL (4.0-10.0)
[2023-04-18 06:47] LABS: BLOOD UREA NITROGEN 10 MG/DL (9-23); CALCIUM LEVEL 8.8 MG/DL (8.3-10.6); CARBON DIOXIDE LEVEL 26 MMOL/L (20-31); CHLORIDE LEVEL 105 MMOL/L (98-107); CREATININE FOR GFR 0.46 MG/DL (0.55-1.30); GLOMERULAR FILTRATION RATE > 60.0 (>39); GLUCOSE, FASTING 96 MG/DL (74-106); SODIUM LEVEL 140 MMOL/L (136-145)
[2023-04-18] MEDS: ENOXAPARIN 40MG/0.4ML SYRINGE (J1650 PER 10MG) SC SCH (09:00)
[2023-04-18] MEDS: DOCUSATE SODIUM 100MG CAPSULE PO SCH (09:00)
[2023-04-18] MEDS: PANTOPRAZOLE 40MG VIAL IV SCH (10:00)
[2023-04-18] MEDS ORDERED: TRAM37.53 PO (10:21)
[2023-04-18] MEDS ORDERED: SUCR1TA PO (10:21)
[2023-04-18] MEDS ORDERED: PANT40TA29 PO (10:21)
== END 2023-04-18 14:11 | disposition home or self-care (01) | DRG 440 ==
LOC: EDBD 12:32 → M ED 12:32 → M ED INP 15:47 → ENRESERV 04-16 14:35 → M MSPAV 04-16 15:16
PROVIDERS: ADMIT Internal Medicine Nephrology; ATTEND Internal Medicine Nephrology
DX: K85.90 Acute pancreatitis without necrosis or infection, unspecified (principal); I25.10 Atherosclerotic heart disease of native coronary artery without angina pectoris; I25.2 Old myocardial infarction; I10 Essential (primary) hypertension; E78.5 Hyperlipidemia, unspecified; F32.A Depression, unspecified; K29.70 Gastritis, unspecified, without bleeding; K29.80 Duodenitis without bleeding; Z87.891 Personal history of nicotine dependence; Z80.0 Family history of malignant neoplasm of digestive organs; Z79.82 Long term (current) use of aspirin; Z79.899 Other long term (current) drug therapy; Z91.048 Other nonmedicinal substance allergy status; Z20.822 Contact with and (suspected) exposure to COVID-19; Z85.3 Personal history of malignant neoplasm of breast; Z95.5 Presence of coronary angioplasty implant and graft; Z90.49 Acquired absence of other specified parts of digestive tract

== ENCOUNTER → 2023-04-19 | Outpatient (REF) | payer MEDICARE, MEDICAID ==
[~2023-04-19] MED LIST changes: +PANT40TA29 PO; +SUCR1TA PO; +TRAM37.53 PO
== END ==
LOC: M LAB REF 16:34
PROVIDERS: ATTEND Physician Assistant Medical
DX: K86.89 Other specified diseases of pancreas (principal)

== ENCOUNTER → 2023-05-21 | Outpatient (CLI) | payer MEDICARE, MEDICAID ==
[~2023-05-21] MED LIST changes: +AMOX875T2 PO; +BACI1CAP PO; +DRON2.5C11 PO; +HYDR-3713 PO; +MED REC COMMENT; +MILKSUS3 PO; +MIRA3350 PO; +ONDA8TAB8 PO; +OXYC-517 PO; +PANT-23 PO; +SENN1TAB96 PO; +SUCR1TAB56 PO
== END ==
LOC: M PLARAD 09:49
PROVIDERS: ATTEND Internal Medicine Pulmonary Disease
DX: R91.8 Other nonspecific abnormal finding of lung field (principal); D48.7 Neoplasm of uncertain behavior of other specified sites; C79.51 Secondary malignant neoplasm of bone; C78.01 Secondary malignant neoplasm of right lung; C78.02 Secondary malignant neoplasm of left lung; C78.1 Secondary malignant neoplasm of mediastinum; K86.89 Other specified diseases of pancreas
CPT/HCPCS: 78815; A9552